=== PATIENT | female | born 1960 | race Caucasian/White ===

== ENCOUNTER 2023-10-11 09:12 | Emergency (ER) | payer MEDICAID, SELFPAY ==
[2023-10-11] VITALS (9 sets, daily range): BP systolic 78–130; BP diastolic 42–84; PULSE 98–122; RESP 16–29; TEMP 36.6–37.1; O2SAT 94–97; BMI 40.9
--- NOTE | 2023-10-11 09:35 | CT_ITS ---
We are attempting to reach an attending provider to discuss findings. An addendum with communication details will be sent when the communication is complete. EXAM: CT ANGIOGRAPHY CHEST, ABDOMEN AND PELVIS WITH INTRAVENOUS CONTRAST CLINICAL INDICATION: Chest pain and flank pain -- Rule out aortic dissection TECHNIQUE: Helically acquired angiography images were obtained of the chest, abdomen and pelvis with intravenous contrast. This CT exam was performed using one or more of the following dose reduction techniques: automated exposure control, adjustment of the mA and/or kV according to patient size, and/or use of iterative reconstruction technique. MIP reconstructed images were created and reviewed. CONTRAST: IV 75mL [id number] COMPARISON: CT abdomen and pelvis, 06/21/2012. FINDINGS: VASCULATURE: AORTA: Atherosclerosis of the aorta without evidence of aneurysm or dissection. PULMONARY ARTERIES: No significant abnormality. Normal in caliber. No obvious central pulmonary embolism although this study was not performed with the pulmonary embolism protocol. GREAT VESSELS OF AORTIC ARCH: No significant abnormality. Normal in caliber. No dissection. CELIAC TRUNK AND MESENTERIC ARTERIES: No significant findings. No occlusion or significant stenosis. No dissection. RENAL ARTERIES: Severe stenosis of the mid left renal artery. No dissection. No accessory renal arteries are present. ILIAC ARTERIES: Small right common iliac artery plaque ulceration or pseudoaneurysm. Mild to moderate multifocal stenosis of the left external iliac artery. Mild to moderate multifocal stenosis of the right common and external iliac artery. No dissection. CHEST: LUNGS AND PLEURAL SPACES: Centrilobular emphysema with minimal scarring and/or atelectasis in the basilar right lower lobe. No discrete mass or nodules identified and no focal consolidative airspace disease. No pleural effusion or thickening. HEART: No significant abnormality. Heart size is normal. No pericardial effusion. Coronary artery calcifications. MEDIASTINUM: Small hiatal hernia. No mediastinal or hilar adenopathy. Esophagus is unremarkable. THYROID: No significant abnormality. No thyroid lesions. ABDOMEN: LIVER: Likely right hepatic cyst for which no follow-up is indicated. GALLBLADDER AND BILE DUCTS: No significant abnormality. No calcified gallstones. No gallbladder distention or wall edema. No intra- or extrahepatic biliary ductal dilation. PANCREAS: No significant abnormality. No focal cystic or solid mass. SPLEEN: No significant abnormality. Normal size without focal cystic or solid mass. ADRENALS: No significant abnormality. No nodules. KIDNEYS AND URETERS: Diffuse decreased cortical enhancement of the left kidney compared to the contralateral side with perinephric strandy opacities present. No discrete obstructive excretory lesion is present such as a stone. This is likely secondary to renal ischemia. Left renal cyst for which no follow-up is indicated. Otherwise, normal renal size and position. STOMACH AND BOWEL: No significant abnormality. No stomach or bowel distention. No focal inflammatory change. PELVIS: APPENDIX: No evidence of acute appendicitis. BLADDER: No significant abnormality. REPRODUCTIVE: Normal as visualized. No mass. CHEST, ABDOMEN and PELVIS: INTRAPERITONEAL SPACE: No significant abnormality. No ascites or other fluid collection. No free air. BONES/JOINTS: Degenerative changes of the axial and appendicular skeleton. No suspicious lytic or blastic abnormality. SOFT TISSUES: Fat-containing right inguinal hernia and fat-containing umbilical hernia. LYMPH NODES: No significant abnormality. No enlarged lymph nodes. CT/CTA Chst, Abd, Pel W and/or WO IMPRESSION: 1. Atherosclerosis of the aorta without evidence of aneurysm or dissection. 2. Severe stenosis of the mid left renal artery. 3. Diffuse decreased cortical enhancement of the left kidney compared to the contralateral side with perinephric strandy opacities present. No discrete obstructive excretory lesion is present such as a stone. This is likely secondary to renal ischemia. Recommend vascular surgery consultation and/or interventional radiology consultation for further evaluation and management. 4. Small right common iliac artery plaque ulceration or pseudoaneurysm. Mild to moderate stenoses of the bilateral iliac arteries. 5. Centrilobular emphysema with minimal scarring and/or atelectasis in the basilar right lower lobe. No discrete mass or nodules identified and no focal consolidative airspace disease. NOTE: Emphysema on CT is an independent risk factor for lung cancer. Consider low dose CT for lung cancer screening between the ages of 50 and 77. 6. Small hiatal hernia. Electronically Signed: Alphonse Short DO at 11:10 EDT ,
[2023-10-11] MEDS: 0.9% Normal Saline (1000mL) 1,000 ML 1000 ML IV ×2 (09:37→10:06)
--- NOTE | 2023-10-11 09:37 | EDS_ITS ---
HPI History of Present Illness Chief Complaint: Flank Pain Informant: patient Onset/Context/Timing Onset: Yesterday Context: Sudden Onset Timing: Continuous Quality: Sharp Location: Left flank, back, and chest Worsened by: Movement Relieved by: Nothing Narrative Narrative: Patient presents with left flank, back, and chest pain that has been getting worse since last night. Patient states that it began rather suddenly. Patient states that last week she was admitted to [facility] for elevated blood pressure. Patient states that since she was released from [facility], she had been starting to feel worse. Patient describes her pain as sharp. Patient states it is over the left side of her abdomen and back. Patient states it radiates into her chest. Patient states she has been having some diarrhea. Patient denies any nausea or vomiting. Patient denies any urinary complaints. [facility] Medical History (Updated 10/11/23 @ 12:[address] Adalberto Brown DO) COPD (chronic obstructive pulmonary disease) Home Medications ?Medication ?Instructions ?Recorded ?Last Taken ?Type lorazepam 1 mg tablet 1 mg PO PRN PRN Anxiety 05/24/15 Unknown History albuterol sulfate 90 mcg/actuation 1 puff inhalation Q4H PRN PRN 10/11/23 Unknown History aerosol inhaler wheezing hydrochlorothiazide 25 mg tablet 25 mg PO DAILY 10/11/23 Unknown History lisinopril 20 mg tablet 40 mg PO DAILY 10/11/23 Unknown History Allergy/AdvReac Type Severity Reaction Status Date / Time Penicillins Allergy Swelling Verified 10/11/23 09:14 Surgical History (Updated 10/11/23 @ 09:[address] Adalberto Brown DO) History of ankle surgery Social History Smoking Status: Current every day smoker tobacco type: cigarettes ROS ROS ED Constitutional Constitutional ED: Denies chills or fever(s) Eyes Eyes: Denies blurry vision or change in vision ENT ENT ED: Denies rhinorrhea or sore throat Cardiovascular Cardiovascular: Reports chest pain; Denies palpitations Respiratory/Chest Respiratory/Chest: Reports cough and dyspnea Gastrointestinal Gastrointestinal: Reports abdominal pain and diarrhea; Denies nausea or vomiting Genitourinary Genitourinary ED: Denies dysuria or hematuria Musculoskeletal Musculoskeletal: Denies back pain or neck pain Integumentary Denies abscess or rash Neurologic Neurologic: Reports weakness; Denies headache(s) Allergic/Immunologic Allergic/Immunologic ED: Denies mouth swelling or urticaria EXAM Physical Exam Const Vital Signs: 10/11/23 09:13 10/11/23 09:13 10/11/23 09:18 Temperature 98.3 F 98.3 F Temperature Source Oral Oral Pulse Rate 113 H 111 H 98 Respiratory Rate 25 H 22 H 26 H Respiratory Effort Blood Pressure 78/66 L 79/42 L 95/68 Blood Pressure Mean 70 54 77 Pulse Ox 97 95 96 Oxygen Delivery Method Room Air Room Air Room Air 10/11/23 09:21 10/11/23 09:24 10/11/23 10:24 Temperature 98.3 F 98.6 F Temperature Source Oral Oral Pulse Rate 112 H 107 H Respiratory Rate 27 H 23 H Respiratory Effort Non-Labored Short of Breath Blood Pressure 89/75 L 104/60 Blood Pressure Mean 79 74 Pulse Ox 97 96 Oxygen Delivery Method Room Air Room Air 10/11/23 11:00 10/11/23 12:00 10/11/23 12:19 Temperature 98 F 98.8 F 98 F Temperature Source Oral Oral Pulse Rate 122 H 113 H 111 H Respiratory Rate 22 H 27 H 29 H Respiratory Effort Blood Pressure 104/69 100/73 100/73 Blood Pressure Mean 80 82 82 Pulse Ox 95 95 94 Oxygen Delivery Method Room Air Room Air Positive well nourished and well developed General Appearance ED: well developed HEENT Reports moist mucous membranes Neck supple and no JVD Resp normal respiratory effort and clear to auscultation bilaterally Cardio regular rhythm Rate: tachycardic Rhythm: abnormal rhythm ectopic beats GI Palpation: soft and tender epigastric, LLQ, LUQ, periumbilical and suprapubic Back/Spine General Back: CVA tenderness left Neuro oriented x3, CN's II-XII intact bilaterally and no sensory deficits noted Sensorium / Orientation: alert Motor Exam: general weakness Psych mental status grossly normal MDM MDM MDM Narrative Medical decision making narrative: Differential diagnosis includes cardiac dysrhythmia, cardiac ischemia, aortic dissection, ureteral calculus, colitis, bowel obstruction, perforation, and dehydration. EKG will be obtained to assess for cardiac dysrhythmia and cardiac ischemia. CTA of the chest, abdomen, and pelvis will be obtained to assess for aortic dissection and pulmonary embolism. CBC will be obtained to assess for leukocytosis and anemia. Comprehensive metabolic profile will be obtained to assess for hepatic function, renal function, and electrolyte abnormality. PT with INR and PTT will be obtained to assess for coagulopathy. High-sensitivity troponin will be obtained to assess for cardiac ischemia. Serum lactate will be obtained to assess for sepsis. Urinalysis will be obtained to assess for urinary tract infection and hematuria. Blood culture will be obtained to assess for sepsis. Urine culture will be obtained to assess for urinary tract infection. Lab Data Attestation: I reviewed the patient's lab results. Lab results narrative: CBC was reviewed. There is a leukocytosis of 28.8. The remainder is within normal limits. Comprehensive metabolic profile was reviewed. BUN was 47 and creatinine was 1.78. CO2 was slightly low at 20. Anion gap was normal at 10. Sodium was low at 129. The remainder is within normal limits. Serum lactate was reviewed and was normal at 1.1. PT with INR and PTT were reviewed and were within normal limits. Urinalysis was reviewed. There is no evidence of urinary tract infection or hematuria. Labs: Laboratory Results - last 24 hr 10/11/23 10/11/23 10/11/23 09:21 10:15 10:55 WBC 28.8 H RBC 4.69 Hgb 13.7 Hct 39.3 MCV 83.8 MCH 29.2 MCHC 34.9 RDW Std Deviation 38.7 RDW Coeff of Derek 12.8 Plt Count 193 MPV 10.7 Immature Gran % (Auto) 1.400 H Neut % (Auto) 87.5 H Lymph % (Auto) 5.3 L [place] % (Auto) 5.4 Eos % (Auto) 0.1 Baso % (Auto) 0.3 Absolute Neuts (auto) 25.2 H Absolute Lymphs (auto) 1.52 Nucleated RBC % 0 Diff Path Review June foll PT 14.5 INR 1.1 APTT 32.7 Sodium 129 L Potassium 4.4 Chloride 99 Carbon Dioxide 20.0 L Anion Gap 10 BUN 47 H Creatinine 1.78 H Estim Creat Clear Calc 34.28 Est GFR (MDRD) Af Amer 37 L Est GFR (MDRD) Non-Af 30 L BUN/Creatinine Ratio 26.4 H Glucose 115 H Lactic Acid 1.1 Calcium 9.0 Total Bilirubin 1.00 AST 16 ALT 26 Alkaline Phosphatase 74 Troponin I High Sens 20 Total Protein 6.2 L Albumin 2.6 L Globulin 3.6 Albumin/Globulin Ratio 0.7 L Urine Color Yellow Urine Clarity Clear Urine pH 6.5 Ur Specific [place] 1.005 Urine Protein 30 H Urine Glucose (UA) Normal Urine Ketones Negative Urine Occult Blood 25 H Urine Nitrite Negative Urine Bilirubin Negative Urine Urobilinogen Normal Ur Leukocyte Esterase 25 H Urine RBC 0 SEEN Urine WBC 0 SEEN Ur Squamous Epith Cells 0 SEEN Urine Bacteria 0 SEEN Urine Mucus 0 SEEN Radiography Diagnostic Testing: Clinical Impression(s) from Imaging Studies Chest/Abdomen/Pelvis CTA 10/11/23 09:35 IMPRESSION: 1. Atherosclerosis of the aorta without evidence of aneurysm or dissection. 2. Severe stenosis of the mid left renal artery. 3. Diffuse decreased cortical enhancement of the left kidney compared to the contralateral side with perinephric strandy opacities present. No discrete obstructive excretory lesion is present such as a stone. This is likely secondary to renal ischemia. Recommend vascular surgery consultation and/or interventional radiology consultation for further evaluation and management. 4. Small right common iliac artery plaque ulceration or pseudoaneurysm. Mild to moderate stenoses of the bilateral iliac arteries. 5. Centrilobular emphysema with minimal scarring and/or atelectasis in the basilar right lower lobe. No discrete mass or nodules identified and no focal consolidative airspace disease. NOTE: Emphysema on CT is an independent risk factor for lung cancer. Consider low dose CT for lung cancer screening between the ages of 50 and 77. 6. Small hiatal hernia. Electronically Signed: Alphonse Short DO at 11:10 EDT , ADDENDUM: 10/11/23 1127 IMPRESSION: 1. Atherosclerosis of the aorta without evidence of aneurysm or dissection. 2. Severe stenosis of the mid left renal artery. 3. Diffuse decreased cortical enhancement of the left kidney compared to the contralateral side with perinephric strandy opacities present. No discrete obstructive excretory lesion is present such as a stone. This is likely secondary to renal ischemia. Recommend vascular surgery consultation and/or interventional radiology consultation for further evaluation and management. 4. Small right common iliac artery plaque ulceration or pseudoaneurysm. Mild to moderate stenoses of the bilateral iliac arteries. 5. Centrilobular emphysema with minimal scarring and/or atelectasis in the basilar right lower lobe. No discrete mass or nodules identified and no focal consolidative airspace disease. NOTE: Emphysema on CT is an independent risk factor for lung cancer. Consider low dose CT for lung cancer screening between the ages of 50 and 77. 6. Small hiatal hernia. N.B. : The above Results were Read Back by Alphonse Short DO to Adalberto Brown DO, and understanding confirmed on 10/11/2023 11:17:21 (ET). Electronically Signed: Alphonse Short DO at 11:10 EDT , CTA of the chest, abdomen, pelvis was obtained. There is no evidence of aortic aneurysm or dissection. There is severe stenosis of the mid left renal artery. There is ischemic changes of the left kidney. There is also a small right common iliac artery plaque ulceration or pseudoaneurysm. This was interpreted by the radiologist and was also independently reviewed by myself. EKG Initial EKG: Attestation: I personally reviewed and interpreted this EKG as follows: Interpretation: Sinus Tachycardia (With frequent ectopic beats with a rate of 113) Comments: EKG was obtained. On my independent interpretation, it shows a sinus tachycardia with frequent PACs with a rate of 113. CA interval was normal at 122 ms. QRS interval was normal 72 ms. QTc interval was normal at 441 ms. [place] was normal. There are nonspecific ST-T wave changes in the inferior and lateral leads. Prior EKG tracings: available for review Prior: Changed (The nonspecific ST-T wave changes are new compared to previous EKG dated 05/24/2015) Treatment and Re-Evaluation :: Patient was given IV fluids. Patient was started on heparin. Patient was advised of her findings. Vascular surgery is not available here today. Because of this, patient will need to be transferred. Case was discussed with Dr. Nielsen at [facility]. He accepted the patient to be transferred to the emergency department there. He stated that the patient would likely be admitted to the internal medicine service and they will consult him. Case was discussed with the emergency physician at [facility]. He accepted the patient to be transferred to the emergency department. Patient understands and is agreeable with the plan. All questions were answered. Critical Care Time Critical Care Time: Yes Critical care time (excluding procedures): 30-74 minutes (37), Including time spent:, Discussing w/Patient &/or Family/Filter Machine Operator, Discussing w/Consultants, Arranging Admission or Transfer and Performing Direct Patient Care at Bedside Discharge Plan Triage Chief Complaint: Flank Pain ED Provider: Adalberto Brown Dx/Rx/DC Orders Clinical Impression: Renal artery stenosis, Ischemia of kidney, Acute kidney injury, Leukocytosis, Hyponatremia Prescriptions: No Action lorazepam 1 MG tablet 1 mg PO PRN PRN (Reason: Anxiety) lisinopril 20 mg tablet 40 mg PO DAILY hydrochlorothiazide 25 mg tablet 25 mg PO DAILY albuterol sulfate 90 mcg/actuation HFA aerosol inhaler 1 puff inhalation Q4H PRN PRN (Reason: wheezing) Primary Care Provider: James Collazo Referrals: Tolu Raman MD [Non-Staff] - Print Language: [place] Disposition Disposition: Acute Care Hospital Discharge Location: [facility]
--- NOTE | 2023-10-11 09:39 | EKG12_ITS ---
Test Reason : CP Blood Pressure : / mmHG Vent. Rate : 113 BPM Atrial Rate : 113 BPM P-R Int : 122 ms QRS Dur : 072 ms QT Int : 322 ms P-R-T Axes : 079 051 237 degrees QTc Int : 441 ms Sinus tachycardia with Premature atrial complexes with Aberrant conduction ST & T wave abnormality, consider anterolateral ischemia Abnormal ECG Confirmed by JACQUI GARCÍA, SCARLETT ([id number]), assignment desk editor TODD BURCH ([id number]) on 10/13/2023 8:03:46 AM Referred By: GILLES Confirmed By:SCARLETT OSMAN MD
[2023-10-11 09:51] LABS: Absolute Lymphocyte Count 1.52 X10^3/uL (0.83-4.51); Absolute Neutrophil Count 25.2 X10^3/uL (2.0-7.7); Basophil# 0.09 X10^3/uL; Basophil% 0.3 % (0-1); Eosinophil# 0.02 X10^3/uL; Eosinophils% 0.1 % (0-5); Hematocrit 39.3 % (37-47); Hemoglobin 13.7 g/dL (12.0-15.0); Lymphocyte # 1.52 X10^3/ul (0.83-4.51); Lymphocyte % 5.3 % (19-41); Mean Corp Hgb Conc 34.9 g/dL (32-36); Mean Corpuscular Hgb 29.2 pg (27.0-32.0); Mean Corpuscular Volume 83.8 fL (81-99); Mean Platelet Vol. 10.7 fl (6.2-12.0); Monocyte# 1.56 X10^3/uL; Monocyte% 5.4 % (0-10); NRBC Flagged by Analyzer 0 % (0-5); Neutrophil % 87.5 % (47-70); POSITIVE DIFFERENTIAL YES; Platelet Count 193 K/mm3 (150-450); RBC Distribution Width CV 12.8 % (11.6-14.6); RBC Distribution Width SD 38.7 fl (35.1-43.9); Red Blood Count 4.69 M/mm3 (4.2-5.4); White Blood Count 28.8 K/mm3 (4.4-11.0)
[2023-10-11 09:52] LABS: Differential Indicated SCAN CRITERIA MET
[2023-10-11 10:02] LABS: International Normalized Ratio 1.1; Prothrombin Time (Protime)PT. 14.5 SECONDS (11.7-14.9)
[2023-10-11 10:03] LABS: Partial Thromboplast Time 32.7 Seconds (24.1-36.2)
[2023-10-11 10:09] LABS: ALB/GLOB Ratio 0.7 RATIO (0.9-2.4); AST(SGOT) 16 U/L (15-37); Alanine Aminotransfer ALT/SGPT 26 U/L (13-56); Albumin, Serum 2.6 g/dL (3.2-5.0); Alkaline Phosphatase 74 U/L (45-117); Anion Gap 10 (5-15); BUN 47 mg/dL (7-18); BUN/Creat Ratio 26.4 RATIO (10-20); Chloride 99 mmol/L (98-107); Creatinine, Serum 1.78 mg/dL (0.55-1.02); EST Glomerular Filtration Rate 30 mL/min (>60); Est Glom Filt Rate - Afr Amer 37 mL/min (>60); Estimated Creatinine Clearance 34.28 ml/min; Globulin 3.6 g/dL (2.2-4.2); Glucose 115 mg/dL (74-106); Potassium 4.4 mmol/L (3.5-5.1); Protein, Total 6.2 g/dL (6.4-8.2); Sodium Level 129 mmol/L (136-145); Troponin-I HS 20 pg/mL (3.0-54.0)
[2023-10-11 10:48] LABS: Lactic Acid 1.1 mmol/L (0.4-1.9)
[2023-10-11 11:04] LABS: Bacteria 0 SEEN /hpf (None Seen); Mucous, Urine 0 SEEN /hpf (<or=2+); Red Blood Cells-Urine 0 SEEN /hpf (0-5); Squamous Epithelial Cells - UA 0 SEEN /hpf (5-10); White Blood Cells 0 SEEN /hpf (0-5)
[2023-10-11 11:05] LABS: Color, Urine Yellow (Yellow); Glucose, Dipstick Normal (Normal); Ketone-Dipstick Negative (Negative); Leukocyte Esterase-Dipstick 25 /ul (Negative); Nitrite-Dipstick Negative (Negative); Occult Blood-Urine 25 /ul (Negative); Protein-Dipstick 30 mg/dl (Negative); Specific Gravity, Urine 1.005 (1.002-1.030); Urine Bilirubin Dipstick Negative (Negative); Urine Clarity Clear (Clear); Urine Urobilinogen Normal (Normal); Urine pH 6.5 (5.0 - 8.0)
[2023-10-11] MEDS: Heparin Injection (Vial) 5,000 UNIT/ML VIAL 7500 UNIT IV (12:00)
[2023-10-11] MEDS: HEPARIN/D5w 25,000 UNITS 25,000 UNITS/250 ML IV.SOLN. 14 UNITS CONT INF (12:02)
[2023-10-14 09:45] LABS: Pathologist Review Reviewed
== END 2023-10-11 14:20 | disposition short-term general hospital (02) ==
PROVIDERS: Emergency Provider Emergency Medicine; PCP Preventive Medicine Occupational Medicine; Visit Provider Emergency Medicine
DX: I70.1 Atherosclerosis of renal artery (principal); J44.9 Chronic obstructive pulmonary disease, unspecified; N17.9 Acute kidney failure, unspecified; E87.1 Hypo-osmolality and hyponatremia; D72.829 Elevated white blood cell count, unspecified; F17.210 Nicotine dependence, cigarettes, uncomplicated
CPT/HCPCS: 36415; 71275; 74174; 80053; 81001; 83605; 84484; 85025; 85610; 85730; 87040; 87077; 87086; 87088; 87186; 93005; 96361; 96365; 96366; 96376; 99285; J7030; Q9967